=== PATIENT | female | born 2005 | race African-American/Black ===

== ENCOUNTER 2024-07-13 13:03 | Observation (INO) | payer MEDICAID ==
[~2024-07-13] VITALS: Ht 160 cm; Wt 72.6 kg
[2024-07-13] MEDS ORDERED: MICO4CRE5 VA (13:51)
--- NOTE | 2024-07-13 15:11 | DVHDS2 ---
Physician Discharge Progress N Final Diagnosis: monilia vaginitis Operations or Procedures: Operations or Procedures nst,vag cult Condition on Discharge: Good Disposition: Home Discharge Instructions: Diet: Regular Activity: Light activity Medications: monistat Follow Up Care: Specialist: 1w Discharge Statement: "Patient was advised to return to the ER or call 911 if any headaches, dizziness, shortness of breath, chest pain, abdominal pain, bleeding, fevers, or worsening of medical condition. Patient was counseled about treatment plan, medications, possible side effects, patientverbalized understanding. All questions were answered to the best of my ability. This discharge took greater then 30 minutes in planning, reviewing documentation, counseling the patient, and discussing with other team members." Visit Coding OBGYN Date of Service: Jul 13, 2024 Billing Provider: SUZANNE WEST DO CADDY/CADDIE SUPERVISOR Common Visit Codes: [id number] OBS CARE (MOD) SUZANNE WEST DO Jul 13, 2024 15:11
== END 2024-07-13 14:00 | disposition home or self-care (01) ==
LOC: LDRP 13:03
PROVIDERS: ADMIT Obstetrics & Gynecology; ATTEND Obstetrics & Gynecology
DX: O23.592 Infection of other part of genital tract in pregnancy, second trimester (principal); Z3A.26 26 weeks gestation of pregnancy; Z79.899 Other long term (current) drug therapy
CPT/HCPCS: 59025; 81002; 94760; G0378

== ENCOUNTER 2024-10-06 08:18 | Observation (INO) | payer MEDICAID ==
[~2024-10-06 08:18] MED LIST: MICO4CRE5 VA
--- NOTE | 2024-10-07 12:56 | DVH ---
Procedure: US BIOPHYSICAL PROFILE 10/07/2024 11:48 AM Indication: GDMA1, IUGR Comparison: None Technique: Sonogram of gravid uterus utilizing grayscale and color techniques. FINDINGS: Single living intrauterine gestation. Presentation: Cephalic Placenta: Posterior, grade 2 heart rate: 152 bpm JUWAN: 17.8 cm, DVP: 6.9cm, debris noted in the amniotic fluid Maternal cervix:Not visualized Biophysical Profile: breathing score: 2 movement score: 2 tone: 2 Quantitative JUWAN score: 2 Total score: 8/8 IMPRESSION: 1. Single living as above. 2. Biophysical profile score: 8/8. 3. Debris noted in the amniotic fluid.
--- NOTE | 2024-10-08 07:45 | DVHDS2 ---
Physician Discharge Progress N Final Diagnosis: iugr 38wks ,gdm Operations or Procedures: Operations or Procedures nst reactive reviewed ,pt has been missing nst siddharthao bpp nl ,pt sched to see deandra on thursday Condition on Discharge: Good Disposition: Home Discharge Instructions: Diet: Regular Activity: No Restrictions, As Tolerated Medications: na Follow Up Care: Specialist: 3d Discharge Statement: "Patient was advised to return to the ER or call 911 if any headaches, dizziness, shortness of breath, chest pain, abdominal pain, bleeding, fevers, or worsening of medical condition. Patient was counseled about treatment plan, medications, possible side effects, patientverbalized understanding. All questions were answered to the best of my ability. This discharge took greater then 30 minutes in planning, reviewing documentation, counseling the patient, and discussing with other team members." Visit Coding OBGYN Date of Service: October 07, 2024 Billing Provider: SUZANNE WEST DO DIRECTOR FIXED INCOME Common Visit Codes: [id number] OBS CARE (HIGH) DIRECTOR FIXED INCOME Procedure Codes: 18019-00- NON-STRESS TEST SUZANNE WEST DO October 08, 2024 07:45
== END 2024-10-07 12:54 | disposition home or self-care (01) ==
LOC: LDRP 10-07 11:35
PROVIDERS: ADMIT Obstetrics & Gynecology; ATTEND Obstetrics & Gynecology
DX: O24.419 Gestational diabetes mellitus in pregnancy, unspecified control (principal); O36.5930 Maternal care for other known or suspected poor fetal growth, third trimester, not applicable or unspecified; Z98.890 Other specified postprocedural states; Z79.899 Other long term (current) drug therapy; Z3A.38 38 weeks gestation of pregnancy
CPT/HCPCS: 59025; 76819; 81002; 82948; 82962; G0378

== ENCOUNTER 2024-10-09 07:50 | Observation (INO) | payer MEDICAID ==
[2024-10-14] MEDS ORDERED: PREN-96 PO (15:35)
--- NOTE | 2024-10-19 21:13 | DVH ---
Procedure: US BIOPHYSICAL PROFILE 10/19/2024 08:38 PM Indication: Term/GDMA1 Comparison: US BIOPHYSICAL PROFILE on DOS: 10/14/24, US BIOPHYSICAL PROFILE on DOS: 10/07/24 Technique: Sonogram of gravid uterus utilizing grayscale and color techniques. FINDINGS: Single living intrauterine gestation. Presentation: Cephalic Placenta: Fundal heart rate: 156 bpm JUWAN: 17.3 cm, DVP: 3 cm Maternal cervix: Not visualized Biophysical Profile: breathing score: 2 movement score: 2 tone: 2 Quantitative JUWAN score: 2 Total score: 8/8 IMPRESSION: 1. Single living as above. 2. Biophysical profile score: 8/8.
--- NOTE | 2024-10-19 21:31 | DVHDS2 ---
Physician Discharge Progress N Final Diagnosis: testing for GDM, A1 and term Operations or Procedures: Operations or Procedures 18yo IUP@40.0wks VSS NST reactive SVE by RN: 0/0/-3 BPP wnl FKC/labor precautions reviewed Other Interventions Other Interventions [address] [address] Ph: [phone] DIAGNOSTIC IMAGING Diagnostic Imaging Report : [id number] Signed PATIENT: MIKE ALLEN ACCT: [id number] UNIT: [id number] : 2005 LOC: [facility] ROOM / BED: TRIAGE1 / A AGE / SEX: 18 / F ADM STATUS: ADM IN SERVICE 18 ORDERING PHYSICIAN: JORY CLEARY CNM PROCEDURE(s): BPP - BIOPHYSICAL PROFILE REASON: Term/GDMA1 ORDER NUMBER(s): [id number], ACCESSION NUMBER(s): [id number] Procedure: US BIOPHYSICAL PROFILE 10/19/2024 08:38 PM Indication: Term/GDMA1 Comparison: US BIOPHYSICAL PROFILE on DOS: 10/14/24, US BIOPHYSICAL PROFILE on DOS: 10/07/24 Technique: Sonogram of gravid uterus utilizing grayscale and color techniques. FINDINGS: Single living intrauterine gestation. Presentation: Cephalic Placenta: Fundal heart rate: 156 bpm JUWAN: 17.3 cm, DVP: 3 cm Maternal cervix: Not visualized Biophysical Profile: breathing score: 2 movement score: 2 tone: 2 Quantitative JUWAN score: 2 Total score: 8/8 IMPRESSION: 1. Single living as above. 2. Biophysical profile score: 8/8. ATED BY: MARY ANDRADE MD DICTATED DATE/TIME: 10/19/242110 SIGNED BY: MARY ANDRADE MD SIGNED DATE/TIME: 10/19/242110 CC: Condition on Discharge: Stable Disposition: Home Discharge Instructions: Diet: Consistent carbohydrate Activity: No Restrictions, As Tolerated Medications: see med list Follow Up Care: Specialist: f/u in 2 days Discharge Statement: "Patient was advised to return to the ER or call 911 if any headaches, dizzin ess, shortness of breath, chest pain, abdominal pain, bleeding, fevers, or worsening of medical condition. Patient was counseled about treatment plan, medications, possible side effects, patientverbalized understanding. All questions were answered to the best of my ability. This discharge took greater then 30 minutes in planning, reviewing documentation, counseling the patient, and discussing with other team members." Visit Coding OBGYN Date of Service: October 19, 2024 Billing Provider: JORY CLEARY CNM OIL WELL LOGGING ENGINEER Common Visit Codes: [id number] OBS CARE (HIGH) OIL WELL LOGGING ENGINEER Procedure Codes: 14229-84- NON-STRESS TEST JORY CLEARY CNM October 19, 2024 21:31
== END 2024-10-19 21:36 | disposition home or self-care (01) ==
LOC: LDRP 10-19 20:14
PROVIDERS: ADMIT Obstetrics & Gynecology; ATTEND Obstetrics & Gynecology
DX: O24.419 Gestational diabetes mellitus in pregnancy, unspecified control (principal); O48.0 Post-term pregnancy; Z3A.40 40 weeks gestation of pregnancy; Z79.899 Other long term (current) drug therapy
CPT/HCPCS: 59025; 76819; 81002; 82948; 82962; G0378

== ENCOUNTER 2024-10-14 07:18 | Observation (INO) | payer MEDICAID ==
--- NOTE | 2024-10-14 15:18 | DVH ---
BIOPHYSICAL PROFILE HISTORY: GDMA1 Comparison Study: US BIOPHYSICAL PROFILE on DOS: 10/07/24 TECHNIQUE: Multiple real-time grayscale sonographic images through the gravid uterus of the fetus wi th duplex Doppler color flow and M-mode spectral analysis FINDINGS: BIOPHYSICAL PROFILE: breathing score: 2 movement score: 2 tone score: 2 Quantitative JUWAN score: 2 (JUWAN: 14.76 Cm.) Total score: 8 The cervix not provided Single live fetus in cephalic presentation. heart rate 148 beats per minute. Grade fundal placenta without previa or abruption Single live fetus at 39 weeks 2 days Biophysical profile score 8 corresponding to an ESTELITA of 10/19/2024 Estimated weight not provided IMPRESSION: 1. Biophysical profile score: 8
[2024-10-14] MEDS ORDERED: PREN-96 PO (15:35)
--- NOTE | 2024-10-14 16:18 | DVHDS2 ---
Physician Discharge Progress N Final Diagnosis: gdm 39wks Operations or Procedures: Operations or Procedures nst reactive reviewed ,sono Condition on Discharge: Good Disposition: Home Discharge Instructions: Diet: Consistent carbohydrate Activity: No Restrictions, As Tolerated Medications: na Follow Up Care: Specialist: fu on thursday for induction Discharge Statement: "Patient was advised to return to the ER or call 911 if any headaches, dizziness, shortness of breath, chest pain, abdominal pain, bleeding, fevers, or worsening of medical condition. Patient was counseled about treatment plan, medications, possible side effects, patientverbalized understanding. All questions were answered to the best of my ability. This discharge took greater then 30 minutes in planning, reviewing documentation, counseling the patient, and discussing with other team members." Visit Coding OBGYN Date of Service: October 14, 2024 Billing Provider: SUZANNE WEST DO ROAD OILING TRUCK DRIVER Common Visit Codes: [id number] OBS CARE (HIGH) ROAD OILING TRUCK DRIVER Procedure Codes: 96039-87- NON-STRESS TEST SUZANNE WEST DO October 14, 2024 16:18
== END 2024-10-14 15:43 | disposition home or self-care (01) ==
LOC: LDRP 14:15
PROVIDERS: ADMIT Obstetrics & Gynecology; ATTEND Obstetrics & Gynecology
DX: O24.419 Gestational diabetes mellitus in pregnancy, unspecified control (principal); Z79.899 Other long term (current) drug therapy; Z3A.39 39 weeks gestation of pregnancy; Z98.890 Other specified postprocedural states
CPT/HCPCS: 59025; 76819; 81002; 82948; 82962; 94760; G0378

== ENCOUNTER 2024-10-21 06:21 | Observation (INO) | payer MEDICAID ==
[~2024-10-21 06:21] MED LIST changes: +PREN-96 PO
--- NOTE | 2024-10-22 14:50 | DVHPN ---
DATE: 10/21/2024 SUPPLEMENT NOTE ADDENDUM The patient has been very noncompliant with GDM followup as well as performing NST BPP. I expressed my concern to the mother and the patient. The mother stated that she was unaware. However, since the visit that I have had with them, the patient and the mother still did not show up to [facility] for monitoring. In fact, they missed the followup appointment with me. The patient was scheduled for induction. They canceled the induction and decided to postpone it till 10/24/2024, which the patient's gestation would be 40 plus. The patient fully understands. The patient was advised against this action; however, the patient stated that she wants to be able to go natural on her own. Both the patient and mother were fully informed and they decided to cancel the induction. They both fully understand the consequences, poor outcome, increased risk of demise. DO RAMÍREZ Garcia/LEE/BAR TID: [id number] RECEIPT: [id number]
--- NOTE | 2024-10-22 19:47 | DVH ---
ULTRASOUND BIOPHYSICAL PROFILE CLINICAL HISTORY: GDM A1 COMPARISON: US BIOPHYSICAL PROFILE on DOS: 10/19/24 TECHNIQUE: Grayscale imaging of the pelvis is performed FINDINGS: Single living intrauterine gestation. Cephalic presentation. heart rate 151 beats per minute. Amniotic fluid index: 20.9cm Biophysical profile: 8 out of 8. (2 breathing, 2 activity, 2 tone, 2 JUWAN) Placenta is posterior. No definite evidence of abruption or previa at this time. IMPRESSION: Single living intrauterine gestation as above. Biophysical profile scoring 8/8.
--- NOTE | 2024-10-22 20:19 | DVHDS2 ---
Physician Discharge Progress N Final Diagnosis: Stable 40.3 wk IUP Secondary Diagnosis: GDMA1, unknown control Encounter for NST/BPP Operations or Procedures: Operations or Procedures NST/BPP/JUWAN Accucheck all WNL Condition on Discharge: Guarded Disposition: Home Discharge Instructions: Diet: Consistent carbohydrate Activity: No Restrictions, As Tolerated Follow Up/Referral: 10/23/24 1200 at [facility] for Induction of Labor or NST. Medications: continue vitamins Follow Up Care: Discharge Statement: "Patient was advised to return to the ER or call 911 if any headaches, dizziness, shortness of breath, chest pain, abdominal pain, bleeding, fevers, or worsening of medical condition. Patient was counseled about treatment plan, medications, possible side effects, patientverbalized understanding. All questions were answered to the best of my ability. This discharge took greater then 30 minutes in planning, reviewing documentation, counseling the patient, and discussing with other team members." Visit Coding OBGYN Date of Service: October 22, 2024 Billing Provider: DYLAN MCARTHUR DO DOOR HANGER Common Visit Codes: [id number]/[id number] SAME DATE (MOD) DYLAN CMARTHUR DO October 22, 2024 20:19
== END 2024-10-22 20:13 | disposition home or self-care (01) ==
LOC: LDRP 10-22 17:49
PROVIDERS: ADMIT Obstetrics & Gynecology; ATTEND Obstetrics & Gynecology
DX: O48.0 Post-term pregnancy (principal); O24.419 Gestational diabetes mellitus in pregnancy, unspecified control; Z98.890 Other specified postprocedural states; Z79.899 Other long term (current) drug therapy; Z3A.40 40 weeks gestation of pregnancy
CPT/HCPCS: 59025; 76819; 81002; G0378

== ENCOUNTER 2024-10-24 22:43 | Inpatient (IN) | payer MEDICAID ==
[~2024-10-24] VITALS: Ht 160 cm; Wt 79.4 kg
[2024-10-24] MEDS ORDERED: LIDOCAINE 2%HCL (LOCAL ANESTH.) INJ 20ML MDV IJ PRN (23:00)
[2024-10-24 23:31] LABS: Basophils # (auto) 0 10 ^3/uL (0-0.2); Basophils % (auto) 0.5 % (0.0-2.0); Eosinophils # (auto) 0 10 ^3/uL (0-0.8); Eosinophils % (auto) 0.2 % (0.0-7.0); Hematocrit 36.7 % (36.0-46.0); Hemoglobin 12.8 g/dL (12.2-16.2); Lymphocytes # (auto) 1.6 10 ^3/uL (0.4-5.4); Lymphocytes % (auto) 24.3 % (10.0-50.0); Mean Corpuscular Hemoglobin 31.3 pg (28.0-32.0); Mean Corpuscular Hgb Conc. 34.8 g/dL (32.0-36.0); Mean Corpuscular Volume 89.9 fL (80.0-100.0); Monocytes # (auto) 0.5 10 ^3/uL (0-1.3); Monocytes % (auto) 8.2 % (0.0-12.0); Neutrophils # (auto) 4.4 10 ^3/uL (1.6-8.6); Neutrophils % (auto) 66.8 % (37.0-80.0); Nucleated Red Blood Cells % 0.1 %; Platelet Count (auto) 137 10^3/uL (140-450); Red Blood Cells 4.08 10^6/uL (4.0-5.20); Red Cell Distribution Width 13.9 % (11.8-14.3); White Blood Cell 6.6 10^3/uL (4.4-10.8)
[2024-10-24 23:46] LABS: INR 0.9 (0.9-1.15); Partial Thromboplastin Time 27.5 SEC (24.5-34.5); Prothrombin Time 9.6 sec (9.3-11.8)
[2024-10-24 23:51] LABS: Albumin 4.1 g/dL (3.2-4.8); Alkaline Phosphatase 78 U/L (46-116); Anion Gap 11 (5-15); BUN/Creatinine Ratio 7.1 (10.0-20.0); Carbon Dioxide 21 mmol/L (20-31); Chloride 105 mmol/L (98-107); Glucose 80 mg/dL (74-106); Potassium 3.8 mmol/L (3.5-5.1); Sodium 137 mmol/L (136-145); Total Protein 7.1 g/dL (5.7-8.2)
[2024-10-24 23:52] LABS: Bilirubin, Total 0.5 mg/dL (0.2-1.0)
[2024-10-25] LABS: Aspartate Aminotransferase 12 U/L (13-40); Blood Urea Nitrogen 6 mg/dL (9-23)
[2024-10-25 00:01] LABS: Alanine Aminotransferase < 9 U/L (7-40)
[2024-10-25] MEDS: DERMOPLAST 60ML BOTTLE TOP PRN (00:28)
[2024-10-25] MEDS: PHISODERM TOP SOLN 240ML BTL TOP PRN (00:28)
[2024-10-25] MEDS: WITCH HAZEL-GLYCERIN PAD TOP PRN (00:28)
[2024-10-25] MEDS: LACTATED RINGER'S 1,000 ML IV SCH (00:48)
--- NOTE | 2024-10-25 00:57 | DVHHP2 ---
OB CC & HPI Date Date of Admission: October 25, 2024 Patient Identification: : 1 Para: 0 EDC: October 27, 2024 EGA: 39.5 Chief Complaints: Reason for admission: induction of labor Indication for induction: other (GDMA1, non compliant) History of Present Complaints 19y G1Po with Unsure LMP. EDC 10/27/24 based on 10w6d US Good PNL care since 1st trimester. CF carrier + GBS results , unknown Scheduled for IOL due to GDM with unsure control. patient non compliant with NST/BPP and Glucose monitoring. Followed initially by MFM Dr Sprague until 27 wk. Denies any pain or symptoms of labor, Feels well. Past Medical History Cardiac: No pertinent Hx Pulmonary: No pertinent Hx Central Nervous System: No pertinent Hx GI: No pertinent Hx Hemotology/Oncology: No pertinent Hx Hepatobiliary: No pertinent Hx Psychiatric: No pertinent Hx Musculoskeletal: No pertinent Hx Rheumotologic: No pertinent Hx Infectious Disease: No peritnent Hx ENT: No pertinent Hx Renal/: No pertinent Hx Endocrine: No pertinent Hx Dermatology: No pertinent Hx Past Surgical History: No pertinent Hx OB History OB History Care: Good Care Ultrasounds: Normal mid trimester US Obstetrical Complications: Gestational Diabetes Medical Complications: None Allergies: Coded Allergies: NO KNOWN ALLERGIES (Unverified , 10/24/24) Home Meds Reported Medications Vit W/ Ferrous Fumara ( One Daily) Daily Tab, 1 TAB PO DAILY, #90 TAB 3 Refills 10/14/24 Miconazole Nitrate Vaginal (Monistat 7 Simply Cure) 2 % Cre, 2 % VA, CRE 07/13/24 Current Medications Current Medications Medications (Trade) Dose Ordered Sig/Gary Route PRN Reason Start Time Stop Time Status Last Admin Lactated Ringer's 1,000 ml @ 125 mls/hr Q8H IV 10/24/24 23:00 Diagnostic Test (Pha) (Accu-Chek Comfort Curve T) 1 strip Q4HR 10/25/24 02:00 Madison Rodriguez (Diana) 1 pad PRN PRN TOP PERINEAL AREA DISCOMFORT 10/24/24 23:00 10/25/24 00:28 Sodium Lauryl Sulfate (Phisoderm) 240 ml PRN PRN TOP PERINEAL AREA DISCOMFORT 10/24/24 23:00 10/25/24 00:28 Benzocaine (Dermoplast) 1 applic PRN PRN TOP PERINEAL AREA DISCOMFORT 10/24/24 23:00 10/25/24 00:28 Misoprostol (Cytotec) 50 mcg Q4HPRN PRN PO CERVICAL RIPENING 10/24/24 23:00 Lidocaine HCl (Xylocaine) 20 ml ONCE PRN IJ PERINEAL AREA DISCOMFORT 10/24/24 23:00 Family & Social History Family/Social History Blood Type: O+ Rubella: immune RPR/VDRL: Negative GBS Status: Unknown HBsAG: Negative Review of Systems Constitutional: No symptom reported Ears, Nose, & Throat: No symptom reported Eyes: No symptom reported Pulmonary/Respiratory: No symptom reported Cardiovascular: No symptom reported Gastrointestinal: No symptom reported Genitourinary: No symptom reported Musculoskeletal: No symptom reported Skin: No symptom reported Psychiatric: No symptom reported Endocrine: No symptom reported Hemotologic/Lymphatic: No symptom reported OB Admission Exam Physical Exam HEENT: NCAT Heart: Rhythm Normal Lungs: Clear Abdomen: Gravid Extremities: Normal Reflexes: Normal Pelvic Exam: RN EXAM: 07/07%/-3 VTX Cervical Dilatation: 1cm Effacement: Other (30) Station: -3 Membranes: Intact Heart Rate: 140's Accelerations: Accelerations Present Decelerations: No Decelerations Short Term Variability: Present Nursing Home Variability: Average (6-25) Contractions on Admission: 6-10 Minutes Apart Intensity: Mild OB Plan Plan Admitting Diagnosis: 19y G1PO, IUP 39.5 wk by 1st tm US dating. IOL FOR GDM- Unknown control, non compliant w/ BS monitoring GBS collected, results currently unknown Categ 1 FHR Plan: Induction Induction Methd: Misoprostol protocol Other Plan: Informed consent obtained for treatment and delivery R/B/A of induction discussed w/ patient and her mother. Cytotec per protocol Glucose monitoring in labor q4h [place] for GBS prophylaxis if results remain unknown or positive. Visit Coding OBGYN Date of Service: October 25, 2024 Billing Provider: DYLAN MCARTHUR DO WORKERS COMPENSATION MANAGER Common Visit Codes: [id number] INP/OBS CARE (HIGH) DYLAN MCARTHUR DO October 25, 2024 00:57
[2024-10-25] MEDS: miSOPROStol 50 MCG per PRE-CUT 1/2 TAB PO PRN (01:09)
[2024-10-25 01:10] LABS: Urine Bacteria FEW /hpf (None Seen); Urine Blood Negative /uL (Negative); Urine Clarity Turbid (Clear); Urine Color Light-Yellow (Yellow); Urine Protein, UAD Negative (Negative); Urine Squamous Epithelial Cell MOD /hpf (<5); Urine Urobilinogen Normal (Negative); Urine WBC 23 /HPF (0-5)
[2024-10-25 01:46] LABS: Barbiturate Scree,Urine Neg (NEGATIVE); Opiate Scree,Urine Neg (NEGATIVE)
[2024-10-25 01:47] LABS: Amphetamine Screen, Urine Neg (NEGATIVE); Benzodiazephine Screen, Urine Neg (NEGATIVE); Cannabinoid Screen, Urine Neg (NEGATIVE); Cocaine Screen, Urine Neg (NEGATIVE); Phencyclidine Screen, Urine Neg (NEGATIVE)
[2024-10-25] MEDS ORDERED: ACCU-CHEK COMFORT CURVE STRIP VI SCH ×2 (02:00→20:15)
--- NOTE | 2024-10-25 07:48 | DVHPN2 ---
CNM Labor Progress Note Date and Time Seen Date Seen: October 25, 2024 Time Seen: 07:39 Subjective Patient reports: No new complaints Subjective Comment Previously, pt kept declining IOL per Dr. Bishop's report. Objective Vital Signs VSS, see chart Monitoring Method Monitoring Method: External Heart Rate Heart Rate Baseline: 130 Heart Rate Variability: Moderate Presence of FHR Accelerations: Yes Presence of FHR Decelerations: No Changes in Trends of Patterns: No Are all 5 Components of the FH: Yes Contractions Contractions Frequency: Occasional Duration of Contraction: 70 Contractions Intensity: Mild Contractions Resting Tone: Relaxed Membranes Membranes: Intact Vaginal Exam Vag Exam Deferred: No Vaginal Exam Dilation: 1 Vaginal Exam Effacement: 50 Vaginal Exam Station: -3 Vaginal Exam Presentation: VTX Medications Medications - Pitocin: No Medication - Epidural: No Medication - Other cervidil placed with pts consent s/p 1 dose of PO cytotec Lab Results Lab Results Vital Signs Date Time Temp Pulse Resp B/P (MAP) Pulse Ox O2 Delivery O2 Flow Rate FiO2 10/25/24 19:56 78 16 116/67 Current Medications Medications (Trade) Dose Ordered Sig/Gary Start Time Stop Time Status Last Admin Dose Admin Lactated Ringer's 1,000 ml @ 125 mls/hr Q8H 10/24/24 23:00 10/25/24 00:48 125 MLS/HR Diagnostic Test (Pha) (Accu-Chek Comfort Curve T) 1 strip Q4HR 10/25/24 02:00 10/25/24 20:17 DC Madison Rodriguez (Tucks) 1 pad PRN PRN 10/24/24 23:00 10/25/24 00:28 1 PAD Sodium Lauryl Sulfate (Phisoderm) 240 ml PRN PRN 10/24/24 23:00 10/25/24 00:28 240 ML Benzocaine (Dermoplast) 1 applic PRN PRN 10/24/24 23:00 10/25/24 00:28 1 APPLIC Misoprostol (Cytotec) 50 mcg Q4HPRN PRN 10/24/24 23:00 10/25/24 20:14 DC 10/25/24 01:09 50 MCG Lidocaine HCl (Xylocaine) 20 ml ONCE PRN 10/24/24 23:00 Oxytocin 500 ml @ 999 mls/hr Q31M ONCE 10/24/24 23:00 10/24/24 23:30 DC Oxytocin 500 ml @ 125 mls/hr Q4H ONCE 10/24/24 23:30 10/25/24 03:29 DC Dinoprostone (Cervidil Suppository) 1 supp ONCE ONCE 10/25/24 07:15 10/25/24 07:19 DC 10/25/24 11:07 1 SUPP Nalbuphine HCl (Nubain) 10 mg Q4HP PRN 10/25/24 14:30 10/25/24 19:56 10 MG Ondansetron HCl (Zofran) 4 mg Q4HPRN PRN 10/25/24 18:00 Naloxone HCl (Narcan) 0.2 mg PRN ONCE 10/25/24 20:00 10/25/24 20:01 DC Ephedrine Sulfate (ePHEDrine SULFATE) 10 mg PRN ONCE 10/25/24 20:00 10/25/24 20:01 DC Lactated Ringer's 1,000 ml @ 1,000 mls/hr Q1H ONCE 10/25/24 20:00 10/25/24 20:59 Oxytocin 1,000 ml @ 6 ml/hr Q24H 10/25/24 20:15 UNV Terbutaline Sulfate (Brethine Inj) 0.25 mg ONCE PRN 10/25/24 20:15 UNV Diagnostic Test (Pha) (Accu-Chek Comfort Curve T) 1 strip Q2HR 10/25/24 20:15 UNV Laboratory Tests Test 10/25/24 18:21 10/25/24 00:25 10/24/24 23:14 Range/Units POC Glucose 84 70-106 mg/dl Urine Color Light-yellow Yellow Urine Clarity Turbid H Clear Urine pH 6.0 5.0-9.0 Urine Specific [place] 1.010 1.001-1.035 Urine Protein Negative Negative Urine Ketones Negative Negative Urine Blood Negative Negative /uL Urine Nitrite Negative Negative Urine Bilirubin Negative Negative Urine Urobilinogen Normal Negative mg/dL Urine Leukocyte Esterase 2+ Negative /uL Urine RBC None seen 0 - 4 /hpf Urine Microscopic WBC 23 H 0-5 /HPF Urine Squamous Epithelial Cells Mod <5 /hpf Urine Bacteria Few H None Seen /hpf Urine Glucose Normal Normal mg/dL Urine Opiates Screen Neg NEGATIVE Urine Fentanyl Screen Neg NEGATIVE Urine Barbiturates Screen Neg NEGATIVE Urine Phencyclidine Screen Neg NEGATIVE Urine Amphetamines Screen Neg NEGATIVE Urine Benzodiazepines Screen Neg NEGATIVE Urine Cocaine Screen Neg NEGATIVE Urine Cannabinoids Screen Neg NEGATIVE White Blood Count 6.6 4.4-10.8 10^3/uL Red Blood Count 4.08 4.0-5.20 10^6/uL Hemoglobin 12.8 12.2-16.2 g/dL Hematocrit 36.7 36.0-46.0 % Mean Corpuscular Volume 89.9 80.0-100.0 fL Mean Corpuscular Hemoglobin 31.3 28.0-32.0 pg Mean Corpuscular Hemoglobin Concent 34.8 32.0-36.0 g/dL Red Cell Distribution Width 13.9 11.8-14.3 % Platelet Count 137 L 140-450 10^3/uL Mean Platelet Volume 10.0 6.9-10.8 fL Neutrophils (%) (Auto) 66.8 37.0-80.0 % Lymphocytes (%) (Auto) 24.3 10.0-50.0 % Monocytes (%) (Auto) 8.2 0.0-12.0 % Eosinophils (%) (Auto) 0.2 0.0-7.0 % Basophils (%) (Auto) 0.5 0.0-2.0 % Neutrophils # (Auto) 4.4 1.6-8.6 10 ^3/uL Lymphocytes # (Auto) 1.6 0.4-5.4 10 ^3/uL Monocytes # (Auto) 0.5 0-1.3 10 ^3/uL Eosinophils # (Auto) 0 0-0.8 10 ^3/uL Basophils # (Auto) 0 0-0.2 10 ^3/uL Nucleated Red Blood Cells 0.1 % Prothrombin Time 9.6 9.3-11.8 sec Prothrombin Time INR 0.90 0.9-1.15 Activated Partial Thromboplast Time 27.5 24.5-34.5 SEC Sodium Level 137 136-145 mmol/L Potassium Level 3.8 3.5-5.1 mmol/L Chloride Level 105 98-107 mmol/L Carbon Dioxide Level 21 20-31 mmol/L Anion Gap 11 5-15 Blood Urea Nitrogen 6 L 9-23 mg/dL Creatinine 0.85 0.550-1.02 mg/dL Glomerular Filtration Rate Calc 100 >90 mL/min BUN/Creatinine Ratio 7.1 L 10.0-20.0 Serum Glucose 80 74-106 mg/dL Calcium Level 9.0 8.7-10.4 mg/dL Total Bilirubin 0.5 0.2-1.0 mg/dL Aspartate Amino Transferase (AST) 12 L 13-40 U/L Alanine Aminotransferase (ALT) < 9 7-40 U/L Alkaline Phosphatase 78 46-116 U/L Total Protein 7.1 5.7-8.2 g/dL Albumin 4.1 3.2-4.8 g/dL Treponema pallidum Antibody Non-reactive Negative Hepatitis C Antibody Negative Negative Assessment Assessment A: 19yo IUP@39.5wks Induction of Labor GDM, A1 (non-complaint) Category I EFM Intact Membranes GBS negative Plan Plan P: Discussed risks, benefits, alternatives of continuing IOL with Cervidil vaginal insert with pt and family. Pt consents to Cervidil insertion. Plan to keep Cervidil in for 12 hours or remove if ROM or calls for it EFM monitoring per order Blood glucose checks q4hrs Pain mgmt PRN Frequent position changes in and out of bed encouraged Limit SVE unless necessary Intrauterine resuscitation PRN Anticipate EVA is co-managing care with Dr. Bishop. Plan discussed with: Patient, Other (mother and FOB) Visit Coding OBGYN Date of Service: October 25, 2024 Billing Provider: JORY CLEARY CNM EPIC ANESTHESIA ANALYST Common Visit Codes: [id number] INP/OBS CARE(HIGH) JORY CLEARY CNM October 25, 2024 07:48
[2024-10-25] MEDS: DINOPROSTONE 10MG VAG SUPP PV ONE (11:07)
[2024-10-25] MEDS: NALBUPHINE HCL 10 MG/1ml INJECTION IV PRN (14:57)
[2024-10-25] MEDS: NALOXONE HCL 0.4 MG/ML VIAL IV ONE (20:00)
[2024-10-25] MEDS: ePHEDrine SULFATE 50 MG/ML AMP IV ONE (20:00)
[2024-10-25] MEDS ORDERED: LACTATED RINGER'S 1,000 ML IV ONE (20:00)
[2024-10-25] MEDS: ROPIVACAINE HCL 200 ML ONE (20:08)
--- NOTE | 2024-10-25 20:11 | DVHPN2 ---
CNM Labor Progress Note Date and Time Seen Date Seen: October 25, 2024 Time Seen: 19:42 Subjective Patient reports: Feels worse Subjective Comment Pt reports lots of pain and involuntarily pushing. Pt wants IV nubain then epidural. Objective Vital Signs VSS, see CPN Monitoring Method Monitoring Method: External Heart Rate Heart Rate Baseline: 135 Heart Rate Variability: Moderate Presence of FHR Accelerations: Yes Presence of FHR Decelerations: No Changes in Trends of Patterns: No Are all 5 Components of the FH: Yes Contractions Contractions Frequency: Other (q3-6 min) Duration of Contraction: 70 Contractions Intensity: Moderate Contractions Resting Tone: Relaxed Membranes Membranes: Intact Vaginal Exam Vag Exam Deferred: No (cervidil removed) Vaginal Exam Dilation: 5 Vaginal Exam Effacement: 80 Vaginal Exam Station: -2 Vaginal Exam Presentation: VTX Vaginal Exam Show: Moderate Medications Medications - Pitocin: No Medications - Pain Medications: s/p 1 dose of Nubain IVP Medication - Epidural: No Medication - Other s/p 1 dose of PO cytotec Lab Results Lab Results Vital Signs Date Time Temp Pulse Resp B/P (MAP) Pulse Ox O2 Delivery O2 Flow Rate FiO2 10/25/24 19:56 78 16 116/67 Current Medications Medications (Trade) Dose Ordered Sig/Gary Start Time Stop Time Status Last Admin Dose Admin Lactated Ringer's 1,000 ml @ 125 mls/hr Q8H 10/24/24 23:00 10/25/24 00:48 125 MLS/HR Diagnostic Test (Pha) (Accu-Chek Comfort Curve T) 1 strip Q4HR 10/25/24 02:00 10/25/24 20:17 DC Madison Rodriguez (Tucks) 1 pad PRN PRN 10/24/24 23:00 10/25/24 00:28 1 PAD Sodium Lauryl Sulfate (Phisoderm) 240 ml PRN PRN 10/24/24 23:00 10/25/24 00:28 240 ML Benzocaine (Dermoplast) 1 applic PRN PRN 10/24/24 23:00 10/25/24 00:28 1 APPLIC Misoprostol (Cytotec) 50 mcg Q4HPRN PRN 10/24/24 23:00 10/25/24 20:14 DC 10/25/24 01:09 50 MCG Lidocaine HCl (Xylocaine) 20 ml ONCE PRN 10/24/24 23:00 Oxytocin 500 ml @ 999 mls/hr Q31M ONCE 10/24/24 23:00 10/24/24 23:30 DC Oxytocin 500 ml @ 125 mls/hr Q4H ONCE 10/24/24 23:30 10/25/24 03:29 DC Dinoprostone (Cervidil Suppository) 1 supp ONCE ONCE 10/25/24 07:15 10/25/24 07:19 DC 10/25/24 11:07 1 SUPP Nalbuphine HCl (Nubain) 10 mg Q4HP PRN 10/25/24 14:30 10/25/24 19:56 10 MG Ondansetron HCl (Zofran) 4 mg Q4HPRN PRN 10/25/24 18:00 Naloxone HCl (Narcan) 0.2 mg PRN ONCE 10/25/24 20:00 10/25/24 20:01 DC Ephedrine Sulfate (ePHEDrine SULFATE) 10 mg PRN ONCE 10/25/24 20:00 10/25/24 20:01 DC Lactated Ringer's 1,000 ml @ 1,000 mls/hr Q1H ONCE 10/25/24 20:00 10/25/24 20:59 Oxytocin 1,000 ml @ 6 ml/hr Q24H 10/25/24 20:15 UNV Terbutaline Sulfate (Brethine Inj) 0.25 mg ONCE PRN 10/25/24 20:15 UNV Diagnostic Test (Pha) (Accu-Chek Comfort Curve T) 1 strip Q2HR 10/25/24 20:15 UNV Laboratory Tests Test 10/25/24 18:21 10/25/24 00:25 10/24/24 23:14 Range/Units POC Glucose 84 70-106 mg/dl Urine Color Light-yellow Yellow Urine Clarity Turbid H Clear Urine pH 6.0 5.0-9.0 Urine Specific [place] 1.010 1.001-1.035 Urine Protein Negative Negative Urine Ketones Negative Negative Urine Blood Negative Negative /uL Urine Nitrite Negative Negative Urine Bilirubin Negative Negative Urine Urobilinogen Normal Negative mg/dL Urine Leukocyte Esterase 2+ Negative /uL Urine RBC None seen 0 - 4 /hpf Urine Microscopic WBC 23 H 0-5 /HPF Urine Squamous Epithelial Cells Mod <5 /hpf Urine Bacteria Few H None Seen /hpf Urine Glucose Normal Normal mg/dL Urine Opiates Screen Neg NEGATIVE Urine Fentanyl Screen Neg NEGATIVE Urine Barbiturates Screen Neg NEGATIVE Urine Phencyclidine Screen Neg NEGATIVE Urine Amphetamines Screen Neg NEGATIVE Urine Benzodiazepines Screen Neg NEGATIVE Urine Cocaine Screen Neg NEGATIVE Urine Cannabinoids Screen Neg NEGATIVE White Blood Count 6.6 4.4-10.8 10^3/uL Red Blood Count 4.08 4.0-5.20 10^6/uL Hemoglobin 12.8 12.2-16.2 g/dL Hematocrit 36.7 36.0-46.0 % Mean Corpuscular Volume 89.9 80.0-100.0 fL Mean Corpuscular Hemoglobin 31.3 28.0-32.0 pg Mean Corpuscular Hemoglobin Concent 34.8 32.0-36.0 g/dL Red Cell Distribution Width 13.9 11.8-14.3 % Platelet Count 137 L 140-450 10^3/uL Mean Platelet Volume 10.0 6.9-10.8 fL Neutrophils (%) (Auto) 66.8 37.0-80.0 % Lymphocytes (%) (Auto) 24.3 10.0-50.0 % Monocytes (%) (Auto) 8.2 0.0-12.0 % Eosinophils (%) (Auto) 0.2 0.0-7.0 % Basophils (%) (Auto) 0.5 0.0-2.0 % Neutrophils # (Auto) 4.4 1.6-8.6 10 ^3/uL Lymphocytes # (Auto) 1.6 0.4-5.4 10 ^3/uL Monocytes # (Auto) 0.5 0-1.3 10 ^3/uL Eosinophils # (Auto) 0 0-0.8 10 ^3/uL Basophils # (Auto) 0 0-0.2 10 ^3/uL Nucleated Red Blood Cells 0.1 % Prothrombin Time 9.6 9.3-11.8 sec Prothrombin Time INR 0.90 0.9-1.15 Activated Partial Thromboplast Time 27.5 24.5-34.5 SEC Sodium Level 137 136-145 mmol/L Potassium Level 3.8 3.5-5.1 mmol/L Chloride Level 105 98-107 mmol/L Carbon Dioxide Level 21 20-31 mmol/L Anion Gap 11 5-15 Blood Urea Nitrogen 6 L 9-23 mg/dL Creatinine 0.85 0.550-1.02 mg/dL Glomerular Filtration Rate Calc 100 >90 mL/min BUN/Creatinine Ratio 7.1 L 10.0-20.0 Serum Glucose 80 74-106 mg/dL Calcium Level 9.0 8.7-10.4 mg/dL Total Bilirubin 0.5 0.2-1.0 mg/dL Aspartate Amino Transferase (AST) 12 L 13-40 U/L Alanine Aminotransferase (ALT) < 9 7-40 U/L Alkaline Phosphatase 78 46-116 U/L Total Protein 7.1 5.7-8.2 g/dL Albumin 4.1 3.2-4.8 g/dL Treponema pallidum Antibody Non-reactive Negative Hepatitis C Antibody Negative Negative Assessment Assessment A: 19yo IUP@39.5wks Induction of Labor GDM, A1 (non-complaint) Category I EFM Intact Membranes GBS negative Plan Plan P: RN can give second dose of nubain IVP now and prep for epidural. Start IV pitocin after epidural placement. Pt advised to stop pushing due to the risk of injury to the cervix. monitoring per order Blood glucose checks q2hrs Frequent position changes in bed with peanut ball encouraged Limit SVE unless necessary Intrauterine resuscitation PRN Anticipate EVA is co-managing care with Dr. Bishop. Plan discussed with: Patient, Other (mother and partner) Visit Coding OBGYN Date of Service: October 25, 2024 Billing Provider: JORY CLEARY CNM MACHINE FEEDER RAW STOCK Common Visit Codes: [id number] INP/OBS CARE(HIGH) JORY CLEARY CNM October 25, 2024 20:11
[2024-10-25] MEDS ORDERED: LACT. RINGERS/OXYTOCIN 20UNITS 1,000 ML IV SCH (20:15)
[2024-10-25] MEDS ORDERED: TERBUTALINE SULFATE 1 MG/ML 1ML VIAL SC PRN (20:15)
--- NOTE | 2024-10-25 23:52 | DVHPN2 ---
CNM Labor Progress Note Date and Time Seen Date Seen: October 25, 2024 Time Seen: 23:40 Subjective Patient reports: No new complaints Objective Vital Signs VSS, see CPN RN unable to start IV pitocin due to category 2 EFM Monitoring Method Monitoring Method: External Heart Rate Heart Rate Baseline: 135 Heart Rate Variability: Moderate Presence of FHR Accelerations: Yes Presence of FHR Decelerations: Yes Heart Rate Type of Decel: Variable Decelerations, Late Decelerations Comment on Trends or Patterns: maternal position changed Are all 5 Components of the FH: Yes Contractions Contractions Frequency: Other (q3-6 min) Duration of Contraction: 120 Contractions Intensity: Moderate Contractions Resting Tone: Relaxed Membranes Membranes: Ruptured (AROM, with pts consent) Amniotic Fluid Color: Clear Vaginal Exam Vag Exam Deferred: No Vaginal Exam Dilation: 9 Vaginal Exam Effacement: 100 Vaginal Exam Station: 0 Vaginal Exam Presentation: VTX Vaginal Exam Show: Small Medications Medications - Pitocin: No Medication - Epidural: Yes Lab Results Lab Results Vital Signs Date Time Temp Pulse Resp B/P (MAP) Pulse Ox O2 Delivery O2 Flow Rate FiO2 10/25/24 19:56 78 16 116/67 Current Medications Medications (Trade) Dose Ordered Sig/Gary Start Time Stop Time Status Last Admin Dose Admin Lactated Ringer's 1,000 ml @ 125 mls/hr Q8H 10/24/24 23:00 10/25/24 00:48 125 MLS/HR Diagnostic Test (Pha) (Accu-Chek Comfort Curve T) 1 strip Q4HR 10/25/24 02:00 10/25/24 20:17 DC Madison Rodriguez (Tucks) 1 pad PRN PRN 10/24/24 23:00 10/25/24 00:28 1 PAD Sodium Lauryl Sulfate (Phisoderm) 240 ml PRN PRN 10/24/24 23:00 10/25/24 00:28 240 ML Benzocaine (Dermoplast) 1 applic PRN PRN 10/24/24 23:00 10/25/24 00:28 1 APPLIC Misoprostol (Cytotec) 50 mcg Q4HPRN PRN 10/24/24 23:00 10/25/24 20:14 DC 10/25/24 01:09 50 MCG Lidocaine HCl (Xylocaine) 20 ml ONCE PRN 10/24/24 23:00 Oxytocin 500 ml @ 999 mls/hr Q31M ONCE 10/24/24 23:00 10/24/24 23:30 DC Oxytocin 500 ml @ 125 mls/hr Q4H ONCE 10/24/24 23:30 10/25/24 03:29 DC Dinoprostone (Cervidil Suppository) 1 supp ONCE ONCE 10/25/24 07:15 10/25/24 07:19 DC 10/25/24 11:07 1 SUPP Nalbuphine HCl (Nubain) 10 mg Q4HP PRN 10/25/24 14:30 10/25/24 19:56 10 MG Ondansetron HCl (Zofran) 4 mg Q4HPRN PRN 10/25/24 18:00 Naloxone HCl (Narcan) 0.2 mg PRN ONCE 10/25/24 20:00 10/25/24 20:01 DC Ephedrine Sulfate (ePHEDrine SULFATE) 10 mg PRN ONCE 10/25/24 20:00 10/25/24 20:01 DC Lactated Ringer's 1,000 ml @ 1,000 mls/hr Q1H ONCE 10/25/24 20:00 10/25/24 20:59 DC Oxytocin 1,000 ml @ 6 ml/hr Q24H 10/25/24 20:15 Terbutaline Sulfate (Brethine Inj) 0.25 mg ONCE PRN 10/25/24 20:15 Diagnostic Test (Pha) (Accu-Chek Comfort Curve T) 1 strip Q2HR 10/25/24 20:15 Laboratory Tests Test 10/25/24 21:50 10/25/24 00:25 10/24/24 23:14 Range/Units POC Glucose 85 70-106 mg/dl Urine Color Light-yellow Yellow Urine Clarity Turbid H Clear Urine pH 6.0 5.0-9.0 Urine Specific [place] 1.010 1.001-1.035 Urine Protein Negative Negative Urine Ketones Negative Negative Urine Blood Negative Negative /uL Urine Nitrite Negative Negative Urine Bilirubin Negative Negative Urine Urobilinogen Normal Negative mg/dL Urine Leukocyte Esterase 2+ Negative /uL Urine RBC None seen 0 - 4 /hpf Urine Microscopic WBC 23 H 0-5 /HPF Urine Squamous Epithelial Cells Mod <5 /hpf Urine Bacteria Few H None Seen /hpf Urine Glucose Normal Normal mg/dL Urine Opiates Screen Neg NEGATIVE Urine Fentanyl Screen Neg NEGATIVE Urine Barbiturates Screen Neg NEGATIVE Urine Phencyclidine Screen Neg NEGATIVE Urine Amphetamines Screen Neg NEGATIVE Urine Benzodiazepines Screen Neg NEGATIVE Urine Cocaine Screen Neg NEGATIVE Urine Cannabinoids Screen Neg NEGATIVE White Blood Count 6.6 4.4-10.8 10^3/uL Red Blood Count 4.08 4.0-5.20 10^6/uL Hemoglobin 12.8 12.2-16.2 g/dL Hematocrit 36.7 36.0-46.0 % Mean Corpuscular Volume 89.9 80.0-100.0 fL Mean Corpuscular Hemoglobin 31.3 28.0-32.0 pg Mean Corpuscular Hemoglobin Concent 34.8 32.0-36.0 g/dL Red Cell Distribution Width 13.9 11.8-14.3 % Platelet Count 137 L 140-450 10^3/uL Mean Platelet Volume 10.0 6.9-10.8 fL Neutrophils (%) (Auto) 66.8 37.0-80.0 % Lymphocytes (%) (Auto) 24.3 10.0-50.0 % Monocytes (%) (Auto) 8.2 0.0-12.0 % Eosinophils (%) (Auto) 0.2 0.0-7.0 % Basophils (%) (Auto) 0.5 0.0-2.0 % Neutrophils # (Auto) 4.4 1.6-8.6 10 ^3/uL Lymphocytes # (Auto) 1.6 0.4-5.4 10 ^3/uL Monocytes # (Auto) 0.5 0-1.3 10 ^3/uL Eosinophils # (Auto) 0 0-0.8 10 ^3/uL Basophils # (Auto) 0 0-0.2 10 ^3/uL Nucleated Red Blood Cells 0.1 % Prothrombin Time 9.6 9.3-11.8 sec Prothrombin Time INR 0.90 0.9-1.15 Activated Partial Thromboplast Time 27.5 24.5-34.5 SEC Sodium Level 137 136-145 mmol/L Potassium Level 3.8 3.5-5.1 mmol/L Chloride Level 105 98-107 mmol/L Carbon Dioxide Level 21 20-31 mmol/L Anion Gap 11 5-15 Blood Urea Nitrogen 6 L 9-23 mg/dL Creatinine 0.85 0.550-1.02 mg/dL Glomerular Filtration Rate Calc 100 >90 mL/min BUN/Creatinine Ratio 7.1 L 10.0-20.0 Serum Glucose 80 74-106 mg/dL Calcium Level 9.0 8.7-10.4 mg/dL Total Bilirubin 0.5 0.2-1.0 mg/dL Aspartate Amino Transferase (AST) 12 L 13-40 U/L Alanine Aminotransferase (ALT) < 9 7-40 U/L Alkaline Phosphatase 78 46-116 U/L Total Protein 7.1 5.7-8.2 g/dL Albumin 4.1 3.2-4.8 g/dL Treponema pallidum Antibody Non-reactive Negative Hepatitis C Antibody Negative Negative Assessment Assessment A: 19yo IUP@39.5wks Induction of Labor GDM, A1 (non-complaint) Category II EFM AROM, clear fluid GBS negative Plan Plan P: Reassess in 1 hour or PRN monitoring per order Blood glucose checks q2hrs Frequent position changes in bed with peanut ball encouraged Intrauterine resuscitation PRN Anticipate EVA is co-managing care with Dr. Bishop. Plan discussed with: Patient, Other (family) Visit Coding OBGYN Date of Service: October 25, 2024 Billing Provider: JORY CLEARY CNM PATROL DRIVER Common Visit Codes: [id number] INP/OBS CARE(HIGH) JORY CLEARY CNM October 25, 2024 23:52
[2024-10-26] MEDS: MINERAL OIL TOPICAL 10ml TOP ONE (03:03)
[2024-10-26] MEDS: METHYLERGONOVINE MALEATE 0.2 MG/ML AMP IM ONE (04:38)
[2024-10-26] MEDS: ONDANSETRON HCL 4 MG/2 ML VIAL IV PRN (05:08)
[2024-10-26] MEDS: LACT. RINGERS/OXYTOCIN 20UNITS 500 ML IV ONE ×2 (05:13→05:14)
--- NOTE | 2024-10-26 05:51 | LDN2 ---
Labor and Delivery Note Date 10/26/24 Age 19 1 Para 1 now AB n/a EDC 10/27/2024 EGA 39.6 weeks Diagnosis IOL for A1 GDM then GBS Negative Vaginal Delivery: VTX Vacuum Assisted: No Placenta: Spontaneous Sex: Female Weight 2940 grams Apgars 7/8/9 Nuchal Cord Transected: No Amniotic Fluid: Clear Anesthesia epidural Episiotomy: No Extension: No Repaired with 3-0 Vicryl suture EBL 350 mL Labs Blood Bank 10/24/24 23:14: Blood Type O POSITIVE Complications n/a Conditions Stable Efficiency Analyst Dr. Ashby Comments/Significant Med Kalpana At 0433 this 19yo now delivered a viable Female infant by w/ APGARS 7/8/9. Intrauterine resuscitation done during entirety of second stage. RT bedside prior to delivery. JENNIFER presentation. Short cord noted. placed skin to skin on pts chest. Cord clamped and cut after one minute for acuity. Cord blood sent and cord gases collected; venous cord gas 7.3 per RT report. Intact 3-vessel cord placenta delivered spontaneously, Nico. Pitocin IV bolus started. Placenta sent to pathology. Patient had epidural anesthesia. Cervix/vagina inspected (intact), first degree perineal and clitoral-urethral lacerations present which were repaired with 3-0 vicryl suture. Red nadine catheter inserted and maintained during laceration repair. 300ml urine expelled. Fundus at U, firm, midline, and light lochia. QBL 350ml. VSS. Count correct x2. Patient to care and baby to couplet care, both stable. Visit Coding OBGYN Date of Service: October 26, 2024 Billing Provider: JORY CLEARY CNM DAIRY FEED WORKER Common Visit Codes: PROCEDURE ONLY DAIRY FEED WORKER Procedure Codes: [id number] DEL INCLUDING SAHARA CONNORS STDDo MDWF October 26, 2024 05:51
[2024-10-26] MEDS: PRENATAL VITAMIN TAB PO SCH (10:19)
[2024-10-26 11:00] VITALS: BP 138/62; PULSE 75; RESP 18; TEMP 98.6; O2SAT 98
[2024-10-26] MEDS: IBUPROFEN 600 MG TAB PO PRN (11:00)
[2024-10-26] MEDS ORDERED: ACETAMINOPHEN IV 1000 MG/100ML (10MG/ML) IV PRN (11:00)
[2024-10-26 15:23] VITALS: BP 120/60; PULSE 78; RESP 18; TEMP 98.1
[2024-10-26 19:00] VITALS: BP 120/58; PULSE 80; RESP 18; TEMP 98.2
[2024-10-26 23:04] VITALS: BP 118/64; PULSE 72; RESP 18; TEMP 98.1
[2024-10-27] MEDS ORDERED: PREN-96 PO (01:07)
[2024-10-27] MEDS ORDERED: IBU600T PO (01:07)
[2024-10-27] MEDS ORDERED: DOCU-94 PO (01:07)
[2024-10-27 03:30] VITALS: BP 107/62; PULSE 80; RESP 18; TEMP 98; O2SAT 72
[2024-10-27 07:00] VITALS: BP 112/66; PULSE 74; RESP 16; TEMP 97.7; O2SAT 97
[2024-10-27 07:25] LABS: Basophils # (auto) 0 10 ^3/uL (0-0.2); Basophils % (auto) 0.3 % (0.0-2.0); Eosinophils # (auto) 0 10 ^3/uL (0-0.8); Eosinophils % (auto) 0.5 % (0.0-7.0); Hematocrit 29.6 % (36.0-46.0); Hemoglobin 10.2 g/dL (12.2-16.2); Lymphocytes # (auto) 1.4 10 ^3/uL (0.4-5.4); Lymphocytes % (auto) 22.1 % (10.0-50.0); Mean Corpuscular Hemoglobin 31.6 pg (28.0-32.0); Mean Corpuscular Hgb Conc. 34.4 g/dL (32.0-36.0); Mean Corpuscular Volume 91.6 fL (80.0-100.0); Monocytes # (auto) 0.5 10 ^3/uL (0-1.3); Monocytes % (auto) 7.8 % (0.0-12.0); Neutrophils # (auto) 4.4 10 ^3/uL (1.6-8.6); Neutrophils % (auto) 69.3 % (37.0-80.0); Nucleated Red Blood Cells % 0.1 %; Platelet Count (auto) 98 10^3/uL (140-450); Red Blood Cells 3.23 10^6/uL (4.0-5.20); Red Cell Distribution Width 13.8 % (11.8-14.3); White Blood Cell 6.4 10^3/uL (4.4-10.8)
[2024-10-27] MEDS: MEASLES, MUMPS & RUBELLA VAC(MMRII) 0.5ML SC ONE (07:57)
[2024-10-27] MEDS: ACETAMINOPHEN 325 MG TAB PO PRN (09:21)
[2024-10-27 11:14] VITALS: BP 152/60; PULSE 75; RESP 16; TEMP 97.6; O2SAT 97
--- NOTE | 2024-10-27 13:35 | DVHPN2 ---
Progress Note Date Seen: October 27, 2024 Subjective S: bleeding is less, eating food without issues, denies lightheaded/dizziness, pain well controlled with oral medications, no concerns with urinating, passing flatus, no BM yet, ambulating well, and formula vital signs Vital Sign Date Time Temp Pulse Resp B/P (MAP) Pulse Ox O2 Delivery O2 Flow Rate FiO2 10/27/24 11:14 97.6 75 16 152/60 (90) 97 97.6 10/27/24 07:00 Room Air 0.0 Total Intake and Output 10/26/24 10/26/24 10/27/24 15:00 23:00 07:00 Output Total 1200 ml 650 ml Balance -1200 ml -650 ml medications Current Medications Medications Dose Ordered Sig/Gary Route Start Time Stop Time Status Last Admin Dose Admin Lidocaine HCl 20 ml ONCE PRN IJ 10/24/24 23:00 Cancel Oxytocin 1,000 ml @ 6 ml/hr Q24H IV 10/25/24 20:15 Cancel Terbutaline Sulfate 0.25 mg ONCE PRN SC 10/25/24 20:15 Cancel Diagnostic Test (Pha) 1 strip Q2HR 10/25/24 20:15 Cancel Acetaminophen 1,000 mg Q8HPRN PRN IV 10/26/24 11:00 UNV laboratory and microbiology Laboratory Tests 10/27/24 07:02 10/24/24 23:14 Test 10/24/24 23:14 Range/Units Serum Glucose 80 74-106 mg/dL Objective O: VSS Chest: heart sounds normal and lung sounds clear bilaterally Abd: soft, non-tender, fundus at U/firm/midline, active bowel sounds, no rebound or guarding Perineum: sutures intact, edges well approximated, no erythema/edema noted Ext: Non-tender, No edema, 2+ BLE DTRs Lochia: minimal See lab results Problems(with codes): (1) (normal spontaneous vaginal delivery) (2) First degree perineal laceration during delivery (3) Precipitous drop in hematocrit Assessment/Plan A: 19yo now PPD#1 s/p Anemia Rh+ Rubella Non-Immune Breast and formula P: D/C home today MMR vaccine ordered Rx sent to pharmacy precautions and preeclampsia warning signs reviewed F/U with [facility] office in 2 weeks Plan discussed with: Patient, Other (family) Visit Coding OBGYN Date of Service: October 27, 2024 Billing Provider: JORY CLEARY CNM CARRIER PACKER Common Visit Codes: [id number] INP/OBS CARE(MOD) JORY CLEARY CNM October 27, 2024 13:35
--- NOTE | 2024-10-27 13:37 | DVHDS2 ---
Obstetrics Discharge Summary Obstetrics Discharge Summary Date of Admission: October 24, 2024 Date of Discharge: October 27, 2024 Reason For Admission: Induction of Labor Procedures: NST, Mgmt of Obstetrics Compli (GDM, A1) Intrapartum Procedures: Spontaneous vaginal deliv Procedures: Hct/date: (10/27/24), Hgb/date: (10/27/24) Operative Complicat: Laceration (first degree Perineal and clitero- uretheral) Discharge Diagnosis: Term -Delivered Discharge Information: Activity (as tolerated, no heavy lifting and nothing in the vagina for 6 weeks), Diet (Routine), Medications (Rx sent), Instructions (Routine), Discharge to (Home), Accompanied by (partner), Discarge date (10/27/24) Visit Coding OBGYN Date of Service: October 27, 2024 Billing Provider: JORY CLEARY CNM CORRESPONDENCE CLERK Common Visit Codes: [id number] DISCH DAY <30MIN JORY CLEARY CNM October 27, 2024 13:37
== END 2024-10-27 11:30 | disposition home or self-care (01) | DRG 560 ==
LOC: LDRP 22:43
PROVIDERS: ADMIT Obstetrics & Gynecology; ATTEND Obstetrics & Gynecology
PROC: 10E0XZZ Delivery of Products of Conception, External Approach (ICD-10-PCS; principal; 2024-10-26)
PROC: 0HQ9XZZ Repair Perineum Skin, External Approach (ICD-10-PCS; 2024-10-26)
PROC: 3E0R3BZ Introduction of Anesthetic Agent into Spinal Canal, Percutaneous Approach (ICD-10-PCS; 2024-10-26)
PROC: 00HU33Z Insertion of Infusion Device into Spinal Canal, Percutaneous Approach (ICD-10-PCS; 2024-10-26)
DX: O24.420 Gestational diabetes mellitus in childbirth, diet controlled (principal); Z37.0 Single live birth; O41.1230 Chorioamnionitis, third trimester, not applicable or unspecified; O71.5 Other obstetric injury to pelvic organs; O70.0 First degree perineal laceration during delivery; O99.02 Anemia complicating childbirth; Z3A.39 39 weeks gestation of pregnancy
CPT/HCPCS: 36415; 59025; 59409; 62282; 80053; 80307; 81001; 81002; 82948; 82962; 85025; 85610; 85730; 86780; 86803; 86850; 86900; 86901; 94760; 94762; 96360; 96361; 96365; 96366; 96372; 96374; G0378; J2405; J2590